=== PATIENT | female | born 1990 | race Hispanic/Latino ===

== ENCOUNTER 2018-05-22 15:59 | Emergency (ER) | payer BC ==
[2018-05-22 16:26] VITALS: RESP 18; BMI 30.8
[2018-05-22] MEDS ORDERED: Sodium Chloride 0.9% 1,000 ML IV STA (17:00)
--- NOTE | 2018-05-22 17:25 | ED PDOC ---
Addendum entered and electronically signed by Rey Juraod DO 05/22/18 19: 13: Addendum Addendum: Will transfer to Dr. Sanz. Ultrasound and lab results are pending. Patient can be discharged if these come back within normal limits. 05/22/18 19:11 Original Note: Arrival/HPI - General Historian: Patient - History of Present Illness Symptom Onset: Sudden Symptom Course: Intermittent Quality: Dullness - General Chief Complaint: Female Genitourinary Time Seen by Provider: 05/22/18 16:25 - History of Present Illness Narrative History of Present Illness (Text): 27 year old Female with LMP February 24 and presents with vaginal spotting for the past 3 days. She noticed the vaginal spotting and called her OB /RN INTERN doctor who told her to rest and stay hydrated. She again noted some vaginal spotting yesterday and called her FLYER REPAIRER who once again told her to follow the same instructions. She has only had minimal pink spotting. She also complains of a dull, aching pain rated at 3/10 on the pain scale. She has been keeping up with her appointments and has been taking her vitamins. She reports getting an U/S last week and was found to have a healthy baby. She also said that the Down Syndrome test was done and the tech pushed too hard. 05/22/18 17:19 (Rey Jurado) Past Medical History - Past History Past History: No Previous - Infectious Disease Hx of Infectious Diseases: None - Tetanus Immunization Tetanus Immunization: Up to Date, Unknown - Reproductive Menopause: No Currently : Yes - Past Medical History Past Medical History: No Previous - Genitourinary/Gynecological Hx Genitourinary Disorders: No - Psychiatric Hx Psychophysiologic Disorder: No Hx Substance Use: No - Surgical History Hx Appendectomy: Yes Hx Section: Yes Hx Tonsillectomy: Yes - Anesthesia Hx Anesthesia: No Hx Anesthesia Reactions: No Hx Malignant Hyperthermia: No - Suicidal Assessment Feels Threatened In Home Enviroment: No Family/Social History - Physician Review Nursing Documentation Reviewed: Yes Family/Social History: Diabetes, Hypertension, Other Smoking Status: Never Smoked Hx Alcohol Use: No Hx Substance Use: No Hx Substance Use Treatment: No Allergies/Home Meds Allergies/Adverse Reactions: Allergies No Known Allergies Allergy (Verified 05/19/13 11:13) Home Medications: Home Meds Medication Instructions Recorded Confirmed Vit#96/Ferrous Fum/FA 1 tab PO DAILY 05/21/15 05/22/18 [] Review of Systems - Physician Review All systems were reviewed & negative as marked: Yes - Review of Systems Constitutional: Normal Eyes: Normal Respiratory: Normal Cardiovascular: Normal Gastrointestinal: Normal Genitourinary Female: Vaginal Bleeding Musculoskeletal: Normal Skin: Normal, Other (tattoos present on right lower abdomen and right upper leg) Neurological: Normal Physical Exam Vital Signs Reviewed: Yes Temperature: Afebrile Blood Pressure: Normal Pulse: Regular Respiratory Rate: Normal Appearance: Positive for: Well-Appearing Mental Status: Positive for: Alert and Oriented X 3 - Systems Exam Head: Present: Atraumatic Pupils: Present: PERRL Neck: Present: Normal Range of Motion Respiratory/Chest: Present: Clear to Auscultation Cardiovascular: Present: Regular Rate and Rhythm Abdomen: Present: Tenderness Upper Extremity: Present: Normal Inspection Lower Extremity: Present: Normal Inspection Neurological: Present: GCS=15 Skin: Present: Other (tattoos seen on right lower abdomen and right upper thigh) Psychiatric: Present: Alert, Oriented x 3, Normal Insight, Normal Concentration Vital Signs Temp Pulse Resp BP Pulse Ox 05/22/18 22:54 98.3 F 70 18 116/72 99 05/22/18 20:44 74 18 118/69 98 05/22/18 18:52 79 18 121/75 98 05/22/18 16:25 98.2 F 85 18 119/74 98 Medical Decision Making ED Course and Treatment: Impression: 27 year old with LMP February 24 and presents with light vaginal spotting. Assessment: idiopathic vaginal spotting Ddx: rule out miscarriage, UTI Plan: Transabdominal Ultrasound was done to evaluate to possible etiology for vaginal bleeding. In addition, evaluate B-hCG to make sure it is not trending down. Perform Urinalysis/Urine Culture. 05/22/18 17:29 (Rey Jurado) - Lab Interpretations Lab Results: 05/22/18 18:57 05/22/18 18:57 Lab Results 05/22/18 18:57: Beta HCG, Quant [id number] H 05/22/18 18:57: Sodium 137, Potassium 3.5 L, Chloride 103, Carbon Dioxide 22, Anion Gap 16, BUN 8, Creatinine 0.5 L, Est GFR ( Amer) > 60, Est GFR (Non -Af Amer) > 60, Random Glucose 83, Calcium 8.8, Total Bilirubin 0.7, AST 20, ALT 24, Alkaline Phosphatase 36 L, Total Protein 7.0, Albumin 4.0, Globulin 3.0 , Albumin/Globulin Ratio 1.3 05/22/18 18:57: WBC 8.2, RBC 3.99, Hgb 12.0, Hct 33.7 L, MCV 84.5, MCH 30.1, MCHC 35.6, RDW 12.9, Plt Count 197, MPV 10.1, Gran % 65.4, Lymph % (Auto) 26.3, [place] % (Auto) 6.6 H, Eos % (Auto) 1.5, Baso % (Auto) 0.2, Gran # 5.36, Lymph # ( Auto) 2.2, [place] # (Auto) 0.5, Eos # (Auto) 0.1, Baso # (Auto) 0.02 05/22/18 18:45: Blood Type A NEGATIVE, Antibody Screen Negative, BBK History Checked Patient has bt - RAD Interpretation Radiology Orders: 05/22/18 16:36 AGE [US] Stat - Medication Orders Current Medication Orders: Discontinued Medications Sodium Chloride (Sodium Chloride 0.9%) 1,000 mls @ 999 mls/hr IV .Q1H1M STA Stop: 05/22/18 18:00 Last Admin: 05/22/18 18:38 Dose: 999 mls/hr eMAR Start Stop Document 05/22/18 18:38 ELLA (Rec: 05/22/18 18:39 ELLA [id number]) Intravenous Solution Start Date 05/22/18 Start Time 18:39 End Date 05/22/18 End time 19:39 Total Infusion Time 60 - PA / INTERNAL INVESTIGATOR / Resident Statement / has reviewed & agrees with the documentation as recorded. / has examined the patient and agrees with the treatment plan. Disposition/Present on Arrival - Present on Arrival Any Indicators Present on Arrival: No History of DVT/PE: No History of Uncontrolled Diabetes: No Urinary Catheter: No History of Decub. Ulcer: No History Surgical Site Infection Following: None - Disposition Have Diagnosis and Disposition been Completed?: Yes Disposition Time: 17:37 - Disposition Diagnosis: Threatened miscarriage Disposition: HOME/ ROUTINE Condition: STABLE Discharge Instructions (ExitCare): Threatened Miscarriage (DC) Additional Instructions: Rest/no strenuous physical activity/follow up with your electric cutter operator this week Forms: [employer] (Indonesian)
--- NOTE | 2018-05-22 18:54 | US ---
PROCEDURE: OB Pelvic Ultrasound HISTORY: vaginal bleeding LMP: 02/24/2018 COMPARISON: None available. FINDINGS: UTERUS: Placenta: Posterior Presentation: Variable BPD: 1.9 cm compatible with estimated gestational age of 13 weeks, 0 days HC: 7.5 cm compatible with estimated gestational age of 13 weeks, 1 day HC: 6.1 cm compatible with estimated gestational age of 12 weeks, 6 days FL: 0.8 cm compatible with estimated gestational age of 12 weeks, 3 days heart rate: 150 beats per minute age (Ultrasound estimated): 12 weeks, 6 days Giselle-gestational hemorrhage: None. Date of delivery (Ultrasound estimated) : 11/28/2018 CERVIX: Measures 3.1 cm. Long and closed. No cervical abnormality seen. RIGHT OVARY: Not visualized. LEFT OVARY: Not visualized. FREE FLUID: None. OTHER FINDINGS: None. IMPRESSION: Single intrauterine gestation with average ultrasound age of 12 weeks, 6 days. heart rate 150 beats per minute. Cervix long and closed.
[2018-05-22 19:09] LABS: BASO # 0.02 K/mm3 (0.0-2.0); BASO % 0.2 % (0.0-3.0); EOS # 0.1 (0.0-0.7); EOS % 1.5 % (1.5-5.0); GRAN # 5.36 (1.4-6.5); GRAN % 65.4 % (50.0-68.0); LYMPH # 2.2 (1.2-3.4); LYMPH % 26.3 % (22.0-35.0); MEAN CELL VOLUME 84.5 fl (80.0-105.0); MEAN CORPUSCULAR HEMOGLOBIN 30.1 pg (25.0-35.0); MEAN CORPUSCULAR HGB CONC 35.6 g/dl (31.0-37.0); MEAN PLATELET VOLUME 10.1 fl (7.0-11.0); MONO # 0.5 (0.1-0.6); MONO % 6.6 % (1.0-6.0); RBC 3.99 10^6/uL (3.5-6.1); RED CELL DISTRIBUTION WIDTH 12.9 % (11.5-14.5); WHITE BLOOD COUNT 8.2 10^3/ul (4.5-11.0)
[2018-05-22 19:11] LABS: ALB/GLOB RATIO 1.3 (1.1-1.8); ALT/SGPT 24 U/L (7-56); AST/SGOT 20 U/L (14-36); BLOOD UREA NITROGEN 8 mg/dL (7-21); CALCIUM 8.8 mg/dL (8.4-10.5); GFR AFRICAN-AMERICAN > 60; GFR NON-AFRICAN AMERICAN > 60
--- NOTE | 2018-05-22 20:10 | ED PDOC ---
Physical Exam Vital Signs Reviewed: Yes Vital Signs Temp Pulse Resp BP Pulse Ox 05/22/18 20:44 74 18 118/69 98 05/22/18 18:52 79 18 121/75 98 05/22/18 16:25 98.2 F 85 18 119/74 98 Temperature: Afebrile Blood Pressure: Normal Pulse: Regular Respiratory Rate: Normal Appearance: Positive for: Well-Appearing, Non-Toxic, Comfortable Pain Distress: None Mental Status: Positive for: Alert and Oriented X 3 - Systems Exam Head: Present: Atraumatic, Normocephalic Pupils: Present: PERRL Extroacular Muscles: Present: EOMI Conjunctiva: Present: Normal Mouth: Present: Moist Mucous Membranes Neck: Present: Normal Range of Motion Respiratory/Chest: Present: Clear to Auscultation, Good Air Exchange. No: Respiratory Distress, Accessory Muscle Use Cardiovascular: Present: Regular Rate and Rhythm, Normal S1, S2. No: Murmurs Abdomen: No: Tenderness, Distention, Peritoneal Signs Back: Present: Normal Inspection Upper Extremity: Present: Normal Inspection. No: Cyanosis, Edema Lower Extremity: Present: Normal Inspection. No: Edema Neurological: Present: GCS=15, CN II-XII Intact, Speech Normal Skin: Present: Warm, Dry, Normal Color. No: Rashes Psychiatric: Present: Alert, Oriented x 3, Normal Insight, Normal Concentration Medical Decision Making ED Course and Treatment: 05/22/18 19:05 Case endorsed to me by Dr. Grimm, who saw patient along with medical review specialist, for pending labs and final disposition. Patient presented to the Emergency department earlier today for vaginal spotting. Patient is approximately 12 weeks and is advised bed rest by her OBGYN. Patient informed pink spotting of blood with occasional cramping but none currently. Patient is not currently bleeding. Patient is in no acute distress with no new complaints. - Lab Interpretations Lab Results: 05/22/18 18:57 05/22/18 18:57 Lab Results 05/22/18 18:57: Beta HCG, Quant [id number] H 05/22/18 18:57: Sodium 137, Potassium 3.5 L, Chloride 103, Carbon Dioxide 22, Anion Gap 16, BUN 8, Creatinine 0.5 L, Est GFR ( Amer) > 60, Est GFR (Non -Af Amer) > 60, Random Glucose 83, Calcium 8.8, Total Bilirubin 0.7, AST 20, ALT 24, Alkaline Phosphatase 36 L, Total Protein 7.0, Albumin 4.0, Globulin 3.0 , Albumin/Globulin Ratio 1.3 05/22/18 18:57: WBC 8.2, RBC 3.99, Hgb 12.0, Hct 33.7 L, MCV 84.5, MCH 30.1, MCHC 35.6, RDW 12.9, Plt Count 197, MPV 10.1, Gran % 65.4, Lymph % (Auto) 26.3, [place] % (Auto) 6.6 H, Eos % (Auto) 1.5, Baso % (Auto) 0.2, Gran # 5.36, Lymph # ( Auto) 2.2, [place] # (Auto) 0.5, Eos # (Auto) 0.1, Baso # (Auto) 0.02 05/22/18 18:45: Blood Type A NEGATIVE, Antibody Screen Negative, BBK History Checked Patient has bt - RAD Interpretation Radiology Orders: 05/22/18 16:36 AGE [US] Stat - Medication Orders Current Medication Orders: Discontinued Medications Sodium Chloride (Sodium Chloride 0.9%) 1,000 mls @ 999 mls/hr IV .Q1H1M STA Stop: 05/22/18 18:00 Last Admin: 05/22/18 18:38 Dose: 999 mls/hr eMAR Start Stop Document 05/22/18 18:38 ELLA (Rec: 05/22/18 18:39 ELLA [id number]) Intravenous Solution Start Date 05/22/18 Start Time 18:39 End Date 05/22/18 End time 19:39 Total Infusion Time 60 - Scribe Statement The provider has reviewed the documentation as recorded by the Scribe Aimee Bull. All medical record entries made by the Scribe were at my direction and personally dictated by me. I have reviewed the chart and agree that the record accurately reflects my personal performance of the history, physical exam, medical decision making, and the department course for this patient. I have also personally directed, reviewed, and agree with the discharge instructions and disposition. Disposition/Present on Arrival - Present on Arrival Any Indicators Present on Arrival: No History of DVT/PE: No History of Uncontrolled Diabetes: No Urinary Catheter: No History of Decub. Ulcer: No History Surgical Site Infection Following: None - Disposition Have Diagnosis and Disposition been Completed?: Yes Diagnosis: Threatened miscarriage Disposition: HOME/ ROUTINE Disposition Time: 21:56 Patient Plan: Discharge Patient Problems: Current Active Problems Problem Status Onset Vaginal bleeding Acute Condition: STABLE Discharge Instructions (ExitCare): Threatened Miscarriage (DC) Additional Instructions: Rest/no strenuous physical activity/follow up with your scrap iron cutter this week Forms: [employer] (Thai)
[2018-05-22 22:56] VITALS: BP 116/72; PULSE 70; TEMP 98.3; O2SAT 99
== END 2018-05-22 22:54 | disposition home or self-care (01) ==
LOC: ED 15:59
DX: O20.0 Threatened abortion (principal); Z3A.12 12 weeks gestation of pregnancy
CPT/HCPCS: 76815; 80053; 84702; 85025; 86850; 86900; 96360; 99283; J2792; J7030